=== PATIENT | male | born 1955 | race Caucasian/White ===

== ENCOUNTER 2023-01-02 13:45 | Outpatient (RCR) | payer MEDICARE, BC, SELFPAY | END 2023-04-03 10:38 | disposition home or self-care (01) | PROVIDERS: PCP Student in an Organized Health Care Education/Training Program; Visit Provider Student in an Organized Health Care Education/Training Program | DX: R41.89 Other symptoms and signs involving cognitive functions and awareness (principal); Z51.89 Encounter for other specified aftercare | CPT/HCPCS: 97165; 97535 ==

== ENCOUNTER 2023-11-28 19:20 | Outpatient (CLI) | payer MEDICARE, BC, SELFPAY | END 2023-11-28 19:21 | disposition home or self-care (01) | LOC: AMB 12-02 16:18 | PROVIDERS: PCP Student in an Organized Health Care Education/Training Program; Visit Provider Emergency Medicine | DX: S79.912A Unspecified injury of left hip, initial encounter (principal); W18.30XA Fall on same level, unspecified, initial encounter; Y92.008 Other place in unspecified non-institutional (private) residence as the place of occurrence of the external cause | CPT/HCPCS: A0425; A0427 ==

== ENCOUNTER 2023-11-28 20:00 | Emergency (ER) | payer MEDICARE, BC, SELFPAY ==
[2023-11-28] VITALS (10 sets, daily range): BP systolic 151–184; BP diastolic 95–104; PULSE 60–77; RESP 16; TEMP 36.7; O2SAT 94–99; BMI 33.1
--- NOTE | 2023-11-28 20:09 | CRLHL7_ITS ---
For Patients: As a result of the Century Cures Act, medical imaging exams and procedure reports are released immediately into your electronic medical record. You may view this report before your referring provider. If you have questions, please contact your health care provider. Indication: FALL, DEFORMITY. PREVIOUS LT HIP SX. Technique: AP view of the pelvis and two views of the left hip. Comparison: None. Findings: Bones: Bilateral total hip arthroplasty changes are noted. There is dislocation of the left femoral ball and acetabular cup. The orthopedic hardware at the right hip appears to be in appropriate alignment. No hardware fracture is identified. No acute osseous fractures.. Demineralization of visualized bones. Joint spaces: Dislocation of the left hip as above. Bilateral SI joint degenerative changes.. Soft tissues: Unremarkable. Impression: Dislocation of the left hip. Dictated by Moshe Coppola MD @ 11/28/2023 9:03:35 PM (Electronically Signed)
--- NOTE | 2023-11-28 20:35 | ED_ITS ---
HPI - General Adult General Date Seen: 11/28/23 <Nguyễn Craven MD - Last Filed: 11/29/23 01:01> Chief complaint: Fall/Minor Trauma <Nguyễn Craven MD - Last Filed: 11/29/23 01:01> Stated complaint: Hip pain <Nguyễn Craven MD - Last Filed: 11/29/23 01:01> Time Seen by Provider: 11/28/23 20:18 <Nguyễn Craven MD - Last Filed: 11/29/23 01:01> History of Present Illness HPI narrative: This is a 68-year-old male with a history of hypertension, CHF, previous stroke, type 2 diabetes, hyperlipidemia, arthritis, presenting to the ER today for hip pain after he fell. He was in his garage around 7:00 p.m. when he fell onto his left side. He has pain in his left hip. He also hit his head but did not lose consciousness. He does not have any headache. No neck pain. He takes baby aspirin but no other anticoagulants. He was brought to the ER by EMS. Per EMS blood sugar was 379. He was placed in a C-collar by EMS and received fentanyl 100 mcg IV. Last meal was a microwave dinner at about 6:00 p.m.. He has no history of problems with previous sedations or anesthesia. He has had bilateral hip replacements. He has had 3 previous left hip dislocations per He recalls that in the past he had been given combinations of fentanyl and propofol for his hip dislocations . He actually is in the process of doing a workup with doctor Gomes through [facility] in [place] to have another hip revision surgery because of his recurrent dislocations. <Nguyễn Craven MD - Last Filed: 11/29/23 01:01> Related Data Home medications: Home Medications ?Medication ?Instructions ?Recorded ?Confirmed aspirin 81 mg capsule 81 mg PO DAILY 11/28/23 11/28/23 atorvastatin 80 mg tablet 80 mg PO DAILY 11/28/23 11/28/23 empagliflozin 25 mg tablet 25 mg PO DAILY 11/28/23 11/28/23 (Jardiance) glipizide 5 mg tablet 5 mg PO DAILY 11/28/23 11/28/23 losartan 25 mg tablet 25 mg PO BID 11/28/23 11/28/23 metformin 500 mg tablet 500 mg PO BID 11/28/23 11/28/23 <Nguyễn Craven MD - Last Filed: 11/29/23 01:01> Allergies/adverse reactions: Allergies Allergy/AdvReac Type Severity Reaction Status Date / Time No Known Drug Allergies Allergy Verified 11/28/23 20:06 <Nguyễn Craven MD - Last Filed: 11/29/23 01:01> [facility] Social History: Social History Smoking Status: Former smoker How often do you have a drink containing alcohol: never AUDIT-C Alcohol total score: 0 Non-prescribed substance use: denies use <Nguyễn Craven MD - Last Filed: 11/29/23 01:01> Exam Narrative: Exam Narrative: Primary Survey: A- patent. Speaking clearly. Phonation normal. No stridor. B- breathing easily. Lung sounds clear and equal. Oxygen saturation normal on room air C- no active bleeding. Blood pressure stable. Symmetric pulses and cap refill in 4 extremities. D- alert and oriented x3. GCS 15. No focal deficits. Constitutional: Appears well-developed and well-nourished. Alert. Conversant. Non toxic. HENT: Head: Atraumatic. Nose: Nose normal. Mouth/Throat: Oral mucosa is clear and moist. no trismus. Pharynx normal. Tonsils symmetric. No tonsillar enlargement, erythema, or exudate. Eyes: Conjunctivae normal. EOM normal. Pupils equal, round, and reactive to light. No scleral icterus. Neck: He is wearing a C-collar placed by EMS but is clearly ill fitting and the chin pieces under his nose. He is not having any neck pain. I removed the collar because it was not providing any meaningful immobilization but was creating difficulty with his speech. Normal range of motion. No posterior midline tenderness. No step-off. He is calm and conversant despite his left hip dislocation. I do think he can concentrate for neck exam and that he does not have a distracting injury. We will clear his C-spine based on nexus. Neck supple. No tracheal deviation present. Cardiovascular: Normal rate, regular rhythm. No gallop. No friction rub. No murmur heard. Symmetric radial artery pulses Pulmonary/Chest: Effort normal. No stridor. No respiratory distress. No wheezes. No rales. No rhonchi . No tenderness. Abdominal: Soft. Bowel sounds normal. No distension. No mass. No tenderness. No rebound. No guarding. Musculoskeletal: RUE: Normal range of motion. No tenderness. No deformity LUE: Normal range of motion. No tenderness. No deformity Pelvis is stable. RLE: Normal range of motion. No edema. No tenderness. No deformity LLE: Left hip tenderness. For shortening and internal rotation of the left leg suggestive for a posterior hip dislocation. No femoral shaft tenderness. Quad and hamstring nontender. Knee and patella nontender. Tibia and fibula nontender. Ankle nontender. Normal plantar flexion and dorsiflexion of the ankle. Foot nontender. Intact distal sensory function on the sole of foot, medial and lateral malleoli, dorsal 1st webspace, mediolateral calf, medial and lateral thigh. Strong DP and PT pulse. Normal distal cap refill. Neurological: Alert and oriented to person, place, and time. Normal strength. CN II-VII intact. No sensory deficit. GCS eye subscore is 4. GCS verbal subscore is 5. GCS motor subscore is 6. Normal coordination Skin: Skin is warm and dry. No rash noted. No pallor. Normal capillary refill. Psychiatric: Normal mood. Normal affect. Very polite. <Nguyễn Craven MD - Last Filed: 11/29/23 01:01> Const: Vital Signs, click to edit/add: Vital Signs - 24 hr 11/28/23 20:04 11/28/23 20:49 11/28/23 21:26 Temperature 98.0 F Pulse Rate 68 Pulse Rate [Pulse Oximeter] 77 Respiratory Rate 16 Blood Pressure Blood Pressure [Ri ght Upper Arm] 184/104 H Pulse Oximetry 94 94 96 Oxygen Delivery Me thod Room Air Nasal Cannula Oxygen Flow Rate 1.5 11/28/23 21:27 11/28/23 21:30 11/28/23 21:32 Temperature Pulse Rate 65 67 65 Pulse Rate [Pulse Oximeter] Respiratory Rate Blood Pressure 151/96 H 159/95 H Blood Pressure [Ri ght Upper Arm] Pulse Oximetry 95 97 96 Oxygen Delivery Me thod Oxygen Flow Rate 11/28/23 21:37 11/28/23 21:42 11/28/23 21:45 Temperature Pulse Rate 64 61 60 Pulse Rate [Pulse Oximeter] Respiratory Rate Blood Pressure 157/98 H 171/96 H Blood Pressure [Ri ght Upper Arm] Pulse Oximetry 98 98 98 Oxygen Delivery Me thod Oxygen Flow Rate 11/28/23 21:47 Temperature Pulse Rate 61 Pulse Rate [Pulse Oximeter] Respiratory Rate Blood Pressure 171/101 H Blood Pressure [Ri ght Upper Arm] Pulse Oximetry 99 Oxygen Delivery Me thod Oxygen Flow Rate <Nguyễn Craven MD - Last Filed: 11/29/23 01:01> Vital Signs, click to edit/add: Vital Signs - 24 hr 11/28/23 20:04 11/28/23 20:49 11/28/23 21:26 Temperature 98.0 F Pulse Rate 68 Pulse Rate [Pulse Oximeter] 77 Respiratory Rate 16 Blood Pressure Blood Pressure [Ri ght Upper Arm] 184/104 H Pulse Oximetry 94 94 96 Oxygen Delivery Me thod Room Air Nasal Cannula Oxygen Flow Rate 1.5 11/28/23 21:27 11/28/23 21:30 11/28/23 21:32 Temperature Pulse Rate 65 67 65 Pulse Rate [Pulse Oximeter] Respiratory Rate Blood Pressure 151/96 H 159/95 H Blood Pressure [Ri ght Upper Arm] Pulse Oximetry 95 97 96 Oxygen Delivery Me thod Oxygen Flow Rate 11/28/23 21:37 11/28/23 21:42 11/28/23 21:45 Temperature Pulse Rate 64 61 60 Pulse Rate [Pulse Oximeter] Respiratory Rate Blood Pressure 157/98 H 171/96 H Blood Pressure [Ri ght Upper Arm] Pulse Oximetry 98 98 98 Oxygen Delivery Me thod Oxygen Flow Rate 11/28/23 21:47 Temperature Pulse Rate 61 Pulse Rate [Pulse Oximeter] Respiratory Rate Blood Pressure 171/101 H Blood Pressure [Ri ght Upper Arm] Pulse Oximetry 99 Oxygen Delivery Me thod Oxygen Flow Rate <Emely Frost MD - Last Filed: 11/28/23 21:15> Course Course ED Course: Sedation note: Patient presented with a left hip dislocation, I was asked to provide sedation for reduction. Risks and benefits of sedation with propofol were discussed with the patient including over sedation, need for airway management, aspiration, failure to reduce. He agreed to proceed. He has had this procedure before, has never had any problems with medications used for sedation, denies asthma or COPD, does have sleep apnea. No medication aller gies. Consent signed. Patient was maintained on cardiac oximetry and end-tidal CO2 monitors. He was given propofol initially 80 mg and then additional 20 mg boluses until adequate sedation was achieved, a total of 170 mg were given. He did not have any hypoxia or hypercapnia, tolerated the procedure well overall. Required jaw thrust for some snoring respirations. He was reduced, awakened without complication. <Emely Frost MD - Last Filed: 11/28/23 21:15> Vital Signs Vital signs: Initial Vital Signs Temperature 98.0 F 11/28/23 20:04 Temperature Source Temporal Artery Scan 11/28/23 20:04 Pulse Rate 77 11/28/23 20:04 Respiratory Rate 16 11/28/23 20:04 Blood Pressure 184/104 H 11/28/23 20:04 Blood Pressure Mean 130 H 11/28/23 20:04 Blood Pressure Position Sitting 11/28/23 20:04 Pulse Oximetry 94 11/28/23 20:04 Oxygen Delivery Method Room Air 11/28/23 20:04 Vital Signs Temperature 98.0 F 11/28/23 20:04 Pulse Rate 77 11/28/23 20:04 Respiratory Rate 16 11/28/23 20:04 Blood Pressure 184/104 H 11/28/23 20:04 Pulse Oximetry 94 11/28/23 20:04 Oxygen Delivery Method Room Air 11/28/23 20:04 Temperature 98.0 F 11/28/23 20:04 Pulse Rate 61 11/28/23 21:47 Respiratory Rate 16 11/28/23 20:04 Blood Pressure 171/101 H 11/28/23 21:47 Pulse Oximetry 99 11/28/23 21:47 Oxygen Delivery Method Nasal Cannula 11/28/23 20:49 Oxygen Flow Rate 1.5 11/28/23 20:49 <Nguyễn Craven MD - Last Filed: 11/29/23 01:01> Initial Vital Signs Temperature 98.0 F 11/28/23 20:04 Temperature Source Temporal Artery Scan 11/28/23 20:04 Pulse Rate 77 11/28/23 20:04 Respiratory Rate 16 11/28/23 20:04 Blood Pressure 184/104 H 11/28/23 20:04 Blood Pressure Mean 130 H 11/28/23 20:04 Blood Pressure Position Sitting 11/28/23 20:04 Pulse Oximetry 94 11/28/23 20:04 Oxygen Delivery Method Room Air 11/28/23 20:04 Vital Signs Temperature 98.0 F 11/28/23 20:04 Pulse Rate 77 11/28/23 20:04 Respiratory Rate 16 11/28/23 20:04 Blood Pressure 184/104 H 11/28/23 20:04 Pulse Oximetry 94 11/28/23 20:04 Oxygen Delivery Method Room Air 11/28/23 20:04 Temperature 98.0 F 11/28/23 20:04 Pulse Rate 61 11/28/23 21:47 Respiratory Rate 16 11/28/23 20:04 Blood Pressure 171/101 H 11/28/23 21:47 Pulse Oximetry 99 11/28/23 21:47 Oxygen Delivery Method Nasal Cannula 11/28/23 20:49 Oxygen Flow Rate 1.5 11/28/23 20:49 <Emely Frost MD - Last Filed: 11/28/23 21:15> Medications Administered Medications: Discontinued Medications Generic Name Dose Route Start Last Admin Trade Name Freq PRN Reason Stop Dose Admin Propofol 200 mg 11/28/23 20:49 11/28/23 21:00 Propofol 10 Mg/Ml Inj IVP 11/28/23 20:50 170 mg ONCE ONE Administration <Nguyễn Craven MD - Last Filed: 11/29/23 01:01> Discontinued Medications Generic Name Dose Route Start Last Admin Trade Name Freq PRN Reason Stop Dose Admin Propofol 200 mg 11/28/23 20:49 11/28/23 21:00 Propofol 10 Mg/Ml Inj IVP 11/28/23 20:50 170 mg ONCE ONE Administration <Emely Frost MD - Last Filed: 11/28/23 21:15> Medical Decision Making MDM Narrative Medical decision making narrative: Very pleasant 68-year-old gentleman with a history of bilateral hip replacements and recurrent left hip joint dislocation (now his 3rd dislocation) who is currently in the process of workup with [facility] to have his left hip surgery revised to prevent more dislocations. He presents to the ER today after he accidentally dislocated his hip and his garage this evening while trying to take a bottle out of a six-pack ring. He did fall to the floor his garage. He think he probably bumped his head but had no loss of consciousness and has no headache. He was placed into a C-collar by EMS as a precaution but is not having any neck pain. His C-collar was clearly ill fitting and not providing any meaningful immobilization or protection so I removed here in the ER. At think I am able to clear his C-spine by clinical criteria. He does have a hip dislocation but is quite conversant and able to clearly concentrate on his neck exam and has no posterior midline tenderness or step-off. Primary concern is for his left hip pain. X-rays confirm a posterior dislocation of his prosthetic hip. No evidence for fracture of the proximal femur or pelvic ring. We will perform procedural sedation were able to successfully perform a closed hip reduction here in the ER. He is neurovascularly intact after the reduction and pain is improved. He had his are comfortable discharging home and will follow-up with his orthopedic doctors at [facility] tomorrow for further evaluation. Discussed the risk for recurrent dislocation and precautions to avoid that occurrence. Precautions for return to the ER reviewed. Also discussed post sedation precautions and driving restrictions after propofol. He will avoid alcohol. Instymeds prescription for Nenana-10 tablets provided that he can use if needed for hip pain. <Nguyễn Craven MD - Last Filed: 11/29/23 01:01> Discharge Plan Discharge Clinical Impression: Dislocation of left hip <Nguyễn Craven MD - Last Filed: 11/29/23 01:01> Patient Disposition: Home, Self-Care <Nguyễn Craven MD - Last Filed: 11/29/23 01:01> Condition: Stable <Nguyễn Craven MD - Last Filed: 11/29/23 01:01> Instructions: Hip Dislocation (ED) <Nguyễn Craven MD - Last Filed: 11/29/23 01:01> Additional Instructions: Please follow-up with your doctor at [facility] tomorrow for recheck and to arrange your follow-up imaging tests. Do not drive or operate machinery or drink alcohol for 8 hours because propofol can cause dizziness and sedation. If you are having pain you can start with ojdo-jan-jbywgow medications such as Tylenol or ibuprofen. For pain uncontrolled by those meds use the prescription hydrocodone. Use caution with hydrocodone because it is addictive, it can cause sedation and dizziness, and can also cause constipation. Be very careful. Avoid activities that require a lot of bending or flexing of your hip because this can cause it to re dislocate. Return to the ER right away if you have any problems. <Nguyễn Craven MD - Last Filed: 11/29/23 01:01> Prescriptions: No Action metformin 500 mg tablet 500 mg PO BID atorvastatin 80 mg tablet 80 mg PO DAILY losartan 25 mg tablet 25 mg PO BID Jardiance 25 mg tablet 25 mg PO DAILY glipizide 5 mg tablet 5 mg PO DAILY aspirin 81 mg capsule 81 mg PO DAILY <Ngyuễn Craven MD - Last Filed: 11/29/23 01:01> Follow Up/Referrals: HARLEY MOORE DO [Primary Care Provider] - <Nguyễn Craven MD - Last Filed: 11/29/23 01:01> Stand Alone Forms: [employer] Info Instructions <Nguyễn Craven MD - Last Filed: 11/29/23 01:01> Procedures Orthopedic Joint Reduction Left hip joint dislocation reduction: Written consent by: health care proxy <Nguyễn Craven MD - Last Filed: 11/29/23 01:01> Time Out Performed: Yes <Nguyễn Craven MD - Last Filed: 11/29/23 01:01> Side: left <Nguyễn Craven MD - Last Filed: 11/29/23 01:01> Joint Reduction Location: hip <Nguyễn Craven MD - Last Filed: 11/29/23 01:01> Manipulation used?: Yes <Nguyễn Craven MD - Last Filed: 11/29/23 01:01> Analgesia: procedural sedation <Nguyễn Craven MD - Last Filed: 11/29/23 01:01> Shoulder Technique Used (if applicable): traction/counter-traction <Nguyễn Craven MD - Last Filed: 11/29/23 01:01> Post-reduction neuro vascular exam: intact <Nguyễn Craven MD - Last Filed: 11/29/23 01:01> Post Reduction X-Ray Obtained: Yes <Nguyễn Craven MD - Last Filed: 11/29/23 01:01> Post Reduction X-Ray Results: reduced <Nguyễn Craven MD - Last Filed: 11/29/23 01:01> Patient Tolerated Procedure: well <Nguyễn Craven MD - Last Filed: 11/29/23 01:01>
[2023-11-28] MEDS: PROPOFOL 10 MG/ML INJ 200 MG IVP (21:00)
--- NOTE | 2023-11-28 21:06 | CRLHL7_ITS ---
For Patients: As a result of the Cures Act, medical imaging exams and procedure reports are released immediately into your electronic medical record. You may view this report before your referring provider. If you have questions, please contact your health care provider. INDICATION: Mr prosthesis dislocation status post reduction, hip injury TECHNIQUE: Hip radiograph 1 view left COMPARISON: 11/28/2023 FINDINGS: Bone: No acute fractures or aggressive bone lesions are identified. Moderate diffuse osteopenia is present. Joint: The left femoral prosthesis appears reduced on frontal view. A left bipolar hip arthroplasty is noted. The visualized sacroiliac joints are unremarkable in appearance. The pubic symphysis is normal in appearance. Soft tissue: Unremarkable. No radiopaque foreign bodies are seen. IMPRESSIONS: 1. The left femoral prosthesis appears reduced on frontal view. 2. Complete radiographic assessment will require at least an additional orthogonal view. Dictated by Oswaldo Baptiste MD @ 11/28/2023 9:50:55 PM Dictated by: Oswaldo Baptiste MD @ 11/28/2023 21:51:00 (Electronically Signed)
== END 2023-11-28 22:13 | disposition home or self-care (01) ==
PROVIDERS: Emergency Provider Emergency Medicine; PCP Student in an Organized Health Care Education/Training Program
DX: S73.015A Posterior dislocation of left hip, initial encounter (principal); T84.021A Dislocation of internal left hip prosthesis, initial encounter; W18.30XA Fall on same level, unspecified, initial encounter
CPT/HCPCS: 27250; 73501; 73502; 99156; 99284; 99285; 99291; J2704

== ENCOUNTER 2024-01-10 10:52 | Outpatient (CLI) | payer MEDICARE, BC, SELFPAY | END 2024-01-10 10:53 | disposition home or self-care (01) | LOC: AMB 01-12 02:26 | PROVIDERS: PCP Student in an Organized Health Care Education/Training Program; Visit Provider Emergency Medicine Emergency Medical Services | DX: S73.005A Unspecified dislocation of left hip, initial encounter (principal) | CPT/HCPCS: A0425; A0427 ==

== ENCOUNTER 2024-01-10 11:27 | Emergency (ER) | payer MEDICARE, BC, SELFPAY ==
[2024-01-10] VITALS (19 sets, daily range): BP systolic 117–158; BP diastolic 84–124; PULSE 63–88; RESP 13–18; TEMP 36.8; O2SAT 94–99; BMI 31.5
--- NOTE | 2024-01-10 11:40 | CRLHL7_ITS ---
For Patients: As a result of the Cures Act, medical imaging exams and procedure reports are released immediately into your electronic medical record. You may view this report before your referring provider. If you have questions, please contact your health care provider. Indication: Hip pain. Technique: Pelvis and left hip 2 3 view. Comparison: None. Findings/impression: Dislocation of the left femoral component of total hip arthroplasty. No obvious fracture is identified. Right total hip arthroplasty with unchanged alignment. Dictated by Aime Baird MD @ 01/10/2024 12:22:08 PM (Electronically Signed)
--- NOTE | 2024-01-10 12:28 | ED.GENADULT ---
HPI - General Adult General Chief complaint: Fall/Minor Trauma Stated complaint: fall Time Seen by Provider: 01/10/24 11:32 History of Present Illness HPI narrative: This 68-year-old male comes in with an injury to his left hip. He has had both hips replaced and he reports that he has dislocated this left hip 2 or 3 times previously. He states that he is scheduled to have a revision. He comes in with similar symptoms of dislocation today. His leg is shortened and he is unable to move his left leg. Related Data Home Medications ?Medication ?Instructions ?Recorded ?Confirmed aspirin 81 mg capsule 81 mg PO DAILY 11/28/23 01/10/24 empagliflozin 25 mg tablet 25 mg PO DAILY 11/28/23 01/10/24 (Jardiance) glipizide 5 mg tablet 5 mg PO DAILY 11/28/23 01/10/24 losartan 25 mg tablet 25 mg PO BID 11/28/23 01/10/24 metformin 500 mg tablet 500 mg PO BID 11/28/23 01/10/24 metformin 500 mg tablet,extended 1,000 mg PO BID 01/10/24 01/10/24 release 24 hr metoprolol succinate 25 mg 25 mg PO DAILY 01/10/24 01/10/24 tablet,extended release 24 hr rosuvastatin 20 mg tablet 20 mg PO QPM 01/10/24 01/10/24 Allergies Allergy/AdvReac Type Severity Reaction Status Date / Time No Known Drug Allergies Allergy Verified 01/10/24 11:36 Review of Systems Status of ROS: Reports: 10 or more systems reviewed and unremarkable except as noted in History and below Narrative: Constitutional: No fevers, no weight gain or loss. Eyes: No discharge. No vision changes. HENT: No congestion, no sore throat, no ear pain. Cardiovascular: No chest pain, no palpitations. Respiratory: No shortness of breath, no wheezes, no cough. Gastrointestinal: No abdominal pain, no vomiting, no diarrhea. Genitourinary: No dysuria, no hematuria. Musculoskeletal: Left hip injury as described above. Skin: No rashes, no pruritis. Neurological: No dizziness, weakness, sensory change, speech change. Endo/Heme/Allergies: No bruising or bleeding. No polydipsia. Pysch: no suicidality, no anxiety, no insomnia. All other systems reviewed and are negative. PFSH PFSH Social History Smoking Status: Former smoker How often do you have a drink containing alcohol: never AUDIT-C Alcohol total score: 0 Non-prescribed substance use: denies use Exam Narrative: Exam Narrative: Constitutional: Well-developed, well-nourished, no acute distress. HEENT: Normocephalic, atraumatic. Neck: Normal range of motion. Nontender. Supple. Heart: Intact distal pulses. Lungs: No chest discomfort. No wheezes, rhonchi, or rales. Abdomen: Nontender. Back: Normal range of motion. Extremities: Left leg is shortened and is unable to move this leg. Skin: Intact. No rash. Warm. No erythema or pallor. Neurologic: No altered sensation. No weakness. Alert and oriented. Psychiatric: No suicidality. No anxiety or depression. No insomnia. Nursing notes and vitals signs are reviewed. Const: Vital Signs, click to edit/add: Vital Signs - 24 hr 01/10/24 11:30 01/10/24 11:39 01/10/24 11:45 Temperature 98.2 F Pulse Rate 78 66 Pulse Rate [Right Pulse Oximeter] 66 Respiratory Rate 18 Blood Pressure Blood Pressure [Ri ght Upper Arm] 147/98 H Pulse Oximetry 97 98 99 Oxygen Delivery Me thod Room Air Oxygen Flow Rate 01/10/24 12:07 01/10/24 12:15 01/10/24 12:28 Temperature Pulse Rate 65 66 65 Pulse Rate [Right Pulse Oximeter] Respiratory Rate Blood Pressure 158/94 H Blood Pressure [Ri ght Upper Arm] Pulse Oximetry 96 95 96 Oxygen Delivery Me thod Oxygen Flow Rate 01/10/24 12:30 01/10/24 12:45 01/10/24 12:47 Temperature Pulse Rate 69 69 Pulse Rate [Right Pulse Oximeter] Respiratory Rate 18 Blood Pressure Blood Pressure [Ri ght Upper Arm] Pulse Oximetry 96 98 98 Oxygen Delivery Me thod Nasal Cannula Oxygen Flow Rate 1 01/10/24 12:54 01/10/24 13:00 01/10/24 13:03 Temperature Pulse Rate 88 74 Pulse Rate [Right Pulse Oximeter] Respiratory Rate 13 17 13 Blood Pressure 157/124 H 117/84 Blood Pressure [Ri ght Upper Arm] Pulse Oximetry 98 98 Oxygen Delivery Me thod Oxygen Flow Rate Course Vital Signs Vital signs: Initial Vital Signs Temperature 98.2 F 01/10/24 11:30 Temperature Source Temporal Artery Scan 01/10/24 11:30 Pulse Rate 66 01/10/24 11:30 Pulse Rhythm Regular 01/10/24 11:30 Respiratory Rate 18 01/10/24 11:30 Blood Pressure 147/98 H 01/10/24 11:30 Blood Pressure Mean 114 H 01/10/24 11:30 Blood Pressure Position Supine 01/10/24 11:30 Pulse Oximetry 97 01/10/24 11:30 Oxygen Delivery Method Room Air 01/10/24 11:30 Vital Signs Temperature 98.2 F 01/10/24 11:30 Pulse Rate 66 01/10/24 11:30 Respiratory Rate 18 01/10/24 11:30 Blood Pressure 147/98 H 01/10/24 11:30 Pulse Oximetry 97 01/10/24 11:30 Oxygen Delivery Method Room Air 01/10/24 11:30 Temperature 98.2 F 01/10/24 11:30 Pulse Rate 74 01/10/24 13:00 Respiratory Rate 13 01/10/24 13:03 Blood Pressure 117/84 01/10/24 13:03 Pulse Oximetry 98 01/10/24 13:00 Oxygen Delivery Method Nasal Cannula 01/10/24 12:47 Oxygen Flow Rate 1 01/10/24 12:47 Medical Decision Making MDM Narrative Medical decision making narrative: This patient comes in with injury to his left hip suspicious of a dislocation. X-ray images confirmed dislocation of the left hip. There is no evidence of fracture. The patient has not had anything to eat today. Anesthesia was contacted to assist in sedation in order to relocate the hip. Informed consent was acquired. Anesthesia administered propofol 130 mg for adequate sedation. I was able to relocate his left hip and this was confirmed with post reduction images. The patient tolerated this procedure well. He did not need any medicine for pain. He was fitted for a knee immobilizer and is okay to be discharged home. His present in the room did make contact with his surgeon. He was scheduled to have a revision about 4 months from now but probably would need to accelerate this date seeing that he has had several dislocations in the past 5 weeks. 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 No obvious fracture is identified. Right total hip arthroplasty with unchanged alignment. Postreduction view: The left femoral prosthesis appears reduced on single provided frontal view. No acute fracture. Discharge Plan Discharge Clinical Impression: Dislocation, hip Patient Disposition: Home w/ Parent or Adult Condition: Improved Additional Instructions: Wear knee immobilizer. Follow-up with orthopedic surgeon for ongoing management. Return if worsening. Prescriptions: No Action metformin 500 mg tablet 500 mg PO BID losartan 25 mg tablet 25 mg PO BID Jardiance 25 mg tablet 25 mg PO DAILY glipizide 5 mg tablet 5 mg PO DAILY aspirin 81 mg capsule 81 mg PO DAILY metoprolol succinate 25 mg tablet extended release 24 hr 25 mg PO DAILY metformin 500 mg tablet extended release 24 hr 1,000 mg PO BID rosuvastatin 20 mg tablet 20 mg PO QPM Follow Up/Referrals: HARLEY MOORE DO [Primary Care Provider] - Stand Alone Forms: [employer] Info Instructions
--- NOTE | 2024-01-10 12:55 | CRLHL7_ITS ---
For Patients: As a result of the Century Cures Act, medical imaging exams and procedure reports are released immediately into your electronic medical record. You may view this report before your referring provider. If you have questions, please contact your health care provider. Indication: Postreduction Technique: Single frontal view of the left hip Comparison: Same day hip radiographs and prior exams Findings/Impression: The left femoral prosthesis appears reduced on single provided frontal view. No acute fracture. Similar-appearing small amount of heterotopic ossification seen at the left hip. No suspicious osseous lesions. The soft tissues are without acute abnormality. Dictated by Yuniel Hernandez MD @ 01/10/2024 1:22:38 PM (Electronically Signed)
--- NOTE | 2024-01-10 13:10 | P.ANES_ITS ---
Anesthesia Charges Start Date/Time Anesthesia Start Date: 01/10/24 Anesthesia Start Time: 12:45 Stop Date/Time Anesthesia Stop Date: 01/10/24 Anesthesia Stop Time: 13:05 Summary Emergency: RETORT [facility]
--- NOTE | 2024-01-10 14:16 | ED.NURSE ---
Knee immobilizer applied to left leg, pt ambulated afterwards. Gait was good, pt tolerated well, did not require assistance.
== END 2024-01-10 14:20 | disposition home or self-care (01) ==
PROVIDERS: Emergency Provider Emergency Medicine Emergency Medical Services; PCP Student in an Organized Health Care Education/Training Program
DX: M24.452 Recurrent dislocation, left hip (principal)
CPT/HCPCS: 27252; 01200; 73501; 73502; 99140; 99284